=== PATIENT | male | born 1985 | race Two or more races ===

== ENCOUNTER 2022-06-22 20:59 | Emergency (ER) | payer OTHER ==
[2022-06-22 21:12] VITALS: BP 130/78; PULSE 98; RESP 18; TEMP 98.1; BMI 42.7
[2022-06-22] MEDS ORDERED: KETOROLAC TROMETHAMINE 30 MG/1 ML VIAL IM ONE (21:31)
[2022-06-22] MEDS ORDERED: KETOROLAC TROMETHAMINE 30 MG/1 ML VIAL ONE (21:33)
== END 2022-06-22 22:42 | disposition home or self-care (01) ==
LOC: JER 20:59 → JERFT 20:59
PROC: 3E023GC Introduction of Other Therapeutic Substance into Muscle, Percutaneous Approach (ICD-10-PCS; principal; 2022-06-22)
DX: S40.011A Contusion of right shoulder, initial encounter (principal); V03.10XA Pedestrian on foot injured in collision with car, pick-up truck or van in traffic accident, initial encounter
CPT/HCPCS: 73030-TC-RT-FY; 73060-TC-RT-FY; 73070-TC-RT-FY; 99284-25